=== PATIENT | male | born 1960 | race Caucasian/White ===

== ENCOUNTER 2020-07-15 11:48 | Observation (INO) | payer OTHER ==
[2020-07-15] MEDS ORDERED: HEPARIN NA (PORCINE) 5,000 UNITS/ML 1ML VIAL IVPUSH ONE ×2 (12:49→13:08)
[2020-07-15] MEDS ORDERED: HEPARIN NA (PORCINE) 5,000 UNITS/ML 1ML VIAL IVPUSH PRN ×5 (12:50→14:03)
[2020-07-15 12:51] LABS: BASO % 2.4 % (0-2.0); EOS % 1.9 % (0-4.5); HEMATOCRIT 48.1 % (35.4-49); HEMOGLOBIN 16.3 GM/dL (11.7-16.9); LYMPH % 20.7 % (8-40); MCH 28.1 pg (25.7-33.7); MCHC 33.9 g/dl (32.0-35.9); MEAN CELL VOLUME 82.8 fl (80-96); MEAN PLT VOLUME 8.3 fl (7.5-11.1); MONO % 12.6 % (3.8-10.2); NEUT % 62.4 % (42.8-82.8); PLATELET COUNT 220 K/MM3 (134-434); RBC 5.81 M/mm3 (4.00-5.60); RDW 14.6 % (11.9-15.9)
[2020-07-15 12:58] LABS: INR 1.07 (0.83-1.09); PROTHROMBIN TIME (PATIENT) 13.1 SEC (9.7-13.0)
[2020-07-15 13:00] LABS: ACTIVATED PTT 28.4 SECONDS (25.2-36.5)
[2020-07-15] MEDS ORDERED: HEPARIN - 25,000 UNIT in SODIUM CHLORIDE 495 ML IV SCH (13:00)
[2020-07-15 13:12] LABS: ALBUMIN 3.9 g/dl (3.4-5.0); BLOOD UREA NITROGEN 19.2 mg/dL (7-18); CALCIUM 9.4 mg/dL (8.5-10.1)
[2020-07-15] MEDS ORDERED: HEPARIN INFUSION - 25,000 UNITS/500 ML INFUS.BAG IVPB SCH ×2 (13:15→14:15)
[2020-07-15] MEDS ORDERED: HEPARIN NA (PORCINE) 5,000 UNITS/ML 1ML VIAL ONE (13:15)
[2020-07-15 13:16] LABS: CREATININE 1.2 mg/dL (0.55-1.3)
[2020-07-15 13:18] LABS: BILIRUBIN,TOTAL 0.6 mg/dL (0.2-1); TOT PROT 6.7 g/dl (6.4-8.2)
[2020-07-15] MEDS ORDERED: PROTAMINE SULFATE 50 MG/5 ML VIAL IVPUSH PRN (14:31)
[2020-07-15 16:25] VITALS: BMI 35.3
[2020-07-15] MEDS ORDERED: ROSUVASTATIN CA 20 MG TABLET (FP) PO SCH (22:00)
[2020-07-16 08:20] LABS: CALCIUM 8.9 mg/dL (8.5-10.1)
[2020-07-16 08:21] LABS: BLOOD UREA NITROGEN 16.2 mg/dL (7-18)
[2020-07-16 08:24] LABS: CREATININE 1.1 mg/dL (0.55-1.3)
[2020-07-16 08:25] LABS: BILIRUBIN,TOTAL 0.9 mg/dL (0.2-1)
[2020-07-16 08:27] LABS: TOT PROT 6.8 g/dl (6.4-8.2)
[2020-07-16 10:23] VITALS: BP 150/88; PULSE 80; TEMP 98.4
== END 2020-07-16 10:30 | disposition home or self-care (01) ==
LOC: JER 11:48 → INTOOBSV 12:31 → JERBED 12:31 → UNDOADMOB 12:31 → JERBED 15:50 → J6S 15:50
PROVIDERS: ADMIT Family Medicine; ATTEND Family Medicine
PROC: 3E033GC Introduction of Other Therapeutic Substance into Peripheral Vein, Percutaneous Approach (ICD-10-PCS; principal; 2020-07-16)
DX: I82.412 Acute embolism and thrombosis of left femoral vein (principal); K57.90 Diverticulosis of intestine, part unspecified, without perforation or abscess without bleeding; E66.9 Obesity, unspecified; Z68.35 Body mass index [BMI] 35.0-35.9, adult; E11.9 Type 2 diabetes mellitus without complications; Z93.3 Colostomy status; R22.42 Localized swelling, mass and lump, left lower limb; Z29.9 Encounter for prophylactic measures, unspecified
CPT/HCPCS: 36415; 71046-TC-FY; 80053; 85025; 85610; 85730; 93005; 93010; 99285-25; C9803; G0378; J1644; U0003; U0005